=== PATIENT | female | born 1950 | race Caucasian/White ===

== ENCOUNTER 2022-01-28 00:22 | Day surgery (SDC) | payer OTHER, SELFPAY ==
[2022-01-15 09:30] VITALS: BMI 23.8
--- NOTE | 2022-01-27 13:27 | WPDANESEPPF ---
Anes - Initial Pre Proc Eval Procedure: Operation Date: 01/28/22 08:15 Proposed Procedures p Screening Colonoscopy - Cam Denton MD Date/Time: 01/27/22 13:27 Surgeon: Cam Denton MD Pre Op Diagnosis: family hx of colon ca Patient Data Age: 71 Gender: F Height: 1.6 m Weight: 61 kg Allergies Allergy/AdvReac Type Severity Reaction Status Date / Time No Known Allergies AdvReac Unknown Verified 01/28/22 07:04 Home Medications Medication Instructions Recorded Confirmed Type rosuvastatin 40 mg tablet 40 mg PO DAILY 01/15/22 01/28/22 History Patient hx anesthesia problems: none Family hx anesthesia problems: none Results Review: All pre-operative results and documents have been reviewed as part of the pre-operative evaluation. [facility] Past Medical History Medical History (Updated 01/27/22 @ 13:28 by Todd Keene MD) Dyslipidemia Impacted cerumen, right ear Neuroma of hand Family History Family History Mother Diabetes mellitus Carcinoma of colon, Onset Age: 65 Father Family history of heart disease in male family member before age 55, Onset Age: 39 Social History Social History Smoking status: Never smoker Alcohol intake: current Drinks per week: 2 Alcohol use details: social Substance use: never Substance use type: does not use Living arrangements: with family Spiritual care concerns: No Anes - Eval Final PreProcedure Day of Procedure 01/27/22 13:27 Patient weight: normal Heart: regular rate and rhythm Lungs: clear to auscultation and normal air movement Airway: Mallampati scale class II Neurological: alert and oriented Last oral intake: >/= 8 hours ASA classification: II Emergent: no Anesthetic plan: proceed Anesthesia type and monitoring: general GIVS Results Review: All pre-operative results and documents have been reviewed as part of the pre-operative evaluation. Informed Consent: The patient's anesthetic plan and its attendant risks and benefits were discussed with the patient/family/POA. Questions were solicited and answers provided to the satisfaction of the patient/family/POA.
[2022-01-28 07:05] VITALS: BP 141/64; PULSE 66; RESP 16; TEMP 36.2; O2SAT 99
[2022-01-28] MEDS: LACTATED RINGERS 1,000 ML 150 ML IV CONT (07:06)
--- NOTE | 2022-01-28 07:51 | P.HP_ITS ---
H&P: HPI History of Present Illness Date/Time: 01/28/22 07:51 Chief Complaint: Family history of colon cancer. Narrative: This is a 71-year-old white female patient presents for screening colonoscopy. Her family history is significant her mother had colon cancer. Patient reports that her current weight appetite bowel movements are normal. Patient denies abdominal pain. She has had no bleeding. Her last colonoscopy in 2017 was unremarkable. Patient presents today for screening colonoscopy. Review of Systems Review of Systems: Review of systems noncontributory. [facility] Past Medical History Medical History (Updated 01/28/22 @ 07:53 by Cam Denton MD) Dyslipidemia Impacted cerumen, right ear Neuroma of hand Family History Family History Mother Diabetes mellitus Carcinoma of colon, Onset Age: 65 Father Family history of heart disease in male family member before age 55, Onset Age: 39 Social History Social History Smoking status: Never smoker Alcohol intake: current Drinks per week: 2 Alcohol use details: social Substance use: never Substance use type: does not use Living arrangements: with family Spiritual care concerns: No Meds Home Medications and Allergies Home Medications Medication Instructions Recorded Confirmed Type rosuvastatin 40 mg tablet 40 mg PO DAILY 01/15/22 01/28/22 History Allergies Allergy/AdvReac Type Severity Reaction Status Date / Time No Known Allergies AdvReac Unknown Verified 01/28/22 07:04 Vital Signs Vital Signs - 24 hr 01/28/22 07:05 Temperature 97.1 F L Pulse Rate 66 Respiratory Rate 16 Blood Pressure 141/64 H Pulse Oximetry 99 Oxygen Delivery Room Air Exam Narrative: Physical exam reveals patient to be alert. Vital signs stable. HEENT exam is unremarkable. Patient is anicteric. Lungs are clear to auscultation and percussion. Heart is without murmur or extra sounds. Abdominal exam bowel sounds are present soft nontender with no organomegaly. Digital external rectal exam is normal. Assessment and Plan Assessment and plan (1) Family history of colon cancer in mother: Code(s): Z80.0 - Family history of malignant neoplasm of digestive organs Status: Acute Assessment and Plan: Patient's mother had colon cancer. For this reason screening colonoscopy advised now and consider this at 5 year intervals in the future.
[2022-01-28 08:18] VITALS: BP 133/80; PULSE 66; RESP 20; O2SAT 98
[2022-01-28 08:28] VITALS: BP 137/82; PULSE 62; RESP 20; O2SAT 98
[2022-01-28 08:38] VITALS: BP 125/80; PULSE 64; RESP 18; O2SAT 99
== END 2022-01-28 08:47 | disposition home or self-care (01) ==
PROVIDERS: PCP Internal Medicine; Visit Provider Internal Medicine Gastroenterology
PROC: 0DJD8ZZ Inspection of Lower Intestinal Tract, Via Natural or Artificial Opening Endoscopic (ICD-10-PCS; CPT 45378; principal; 2022-01-28 08:15)
DX: Z12.11 Encounter for screening for malignant neoplasm of colon (principal); D12.2 Benign neoplasm of ascending colon; D12.5 Benign neoplasm of sigmoid colon; K64.8 Other hemorrhoids; Z80.0 Family history of malignant neoplasm of digestive organs; E78.5 Hyperlipidemia, unspecified
CPT/HCPCS: 45385; 88305; J2704; J7120

== ENCOUNTER 2022-12-17 09:00 | Emergency (ER) | payer OTHER, SELFPAY ==
[2022-12-17 09:17] VITALS: BP 147/69; PULSE 80; RESP 16; TEMP 36.4; O2SAT 98
--- NOTE | 2022-12-17 09:36 | ED.WOUNDLAC ---
HPI - Wound/Laceration General Chief Complaint: Wound/Laceration Stated Complaint: laceration rt ankle Time Seen by Provider: 12/17/22 09:28 Source: patient Mode of arrival: ambulatory Limitations: no limitations History of Present Illness HPI narrative: 72-year-old female presented for complaint of laceration to the back of the right ankle after injury yesterday at 1630. States she cut the ankle on a metal gate, and she had to pull the skin flap up over the wound. She cleanse the site applied a Band-Aid. States bleeding has stopped. Denies decreased ROM at the ankle, denies numbness, tingling or weakness of the foot. States pain is minimal. Patient recalls last tetanus was 2017. Related Data Home Medications Medication Instructions Recorded Confirmed rosuvastatin 40 mg tablet 40 mg PO DAILY 01/15/22 12/17/22 Allergies Allergy/AdvReac Type Severity Reaction Status Date / Time No Known Allergies AdvReac Unknown Verified 09/14/22 10:26 Review of Systems Review of Systems: CONSTITUTIONAL: Denies body aches, fever, chills, or sweats. EYES: Denies visual changes, redness, or discharge. ENT: Denies rhinorrhea, congestion CARDIOVASCULAR: Denies chest pain, palpitations, or edema. RESPIRATORY: Denies cough or dyspnea. GASTROINTESTINAL: Denies abdominal pain, nausea, vomiting, or diarrhea. SKIN: laceration to posterior right ankle MUSCULOSKELETAL: Denies back pain, joint pain, or myalgia. NEUROLOGIC: Denies headache, numbness, tingling, or weakness. [facility] Past Medical History Medical History Dyslipidemia Impacted cerumen, right ear Neuroma of hand RBBB (right bundle branch block) Family History Family History Mother Diabetes mellitus Carcinoma of colon, Onset Age: 65 Father Family history of heart disease in male family member before age 55, Onset Age: 39 Social History Social History Smoking status: Never smoker Alcohol intake: never Substance use: never Substance use type: does not use Lack of Transportation: No Lack of Food: Never True Current Housing: I Have Housing Concerned About Future Housing: No Difficulty Paying Gas/Electric Bills: No Difficulty Paying for Meds: No Currently Unemployed: No Education: High School Diploma/GED Difficulty w/ Childcare or Family Care: No Living arrangements: with family Spiritual care concerns: No Comments At time of signature, I have reviewed and agree with nursing past medical, surgical, social and family history unless otherwise noted. Please see nursing chart for further information. There is no relevant family history pertinent to the presenting complaint Exam Narrative: GENERAL: Well-appearing HEAD: Normocephalic, atraumatic. EYES: conjunctivae clear, and EOMI. ENT: Mucous membranes moist. Oropharynx without edema, erythema or lesions. NECK: Supple. No lymphadenopathy CHEST: Clear to auscultation. HEART: Regular rate and rhythm. SKIN: Warm, dry. Laceration to posterior right ankle, U-shaped 6cm irregular, bleeding controlled. Site appears clean. EXT: Right Foot with normal strength and sensation. Slightly decreased ROM with flexion at ankle due to pain.Tendon reflex intact. Peripheral pulses 2+. Cap refill <3seconds. No bruising or swelling. No deformity. NEURO: Alert and oriented x3. Course Course Emergency Course: Patient is aware of diagnosis, understands and agrees to treatment plan. Anticipatory guidance given. Patient agrees to follow-up as directed and is aware of reasons to seek care at the emergency department. Portions of this record may have been created with voice recognition software Level of Care: Express Care Visit Vital Signs Vital signs: Vital Signs Temperature 97.6 F 12/17/22 09:17
== END 2022-12-17 10:30 | disposition home or self-care (01) ==
PROVIDERS: Emergency Provider Nurse Practitioner Family; PCP Family Medicine
DX: S91.011A Laceration without foreign body, right ankle, initial encounter (principal); W45.8XXA Other foreign body or object entering through skin, initial encounter; E78.5 Hyperlipidemia, unspecified
CPT/HCPCS: 12002; 99213; G0463